=== PATIENT | male | born 1985 | race American Indian/Alaskan Native ===

== ENCOUNTER 2019-01-07 07:10 | Emergency (ER) | payer SELFPAY ==
[2019-01-07 07:16] VITALS: BP 139/85
--- NOTE | 2019-01-07 07:29 | Emergency Department Report ---
ED ENT HPI - General Chief complaint: Dental/Oral Stated complaint: TOOTH PAIN Time Seen by Provider: 01/07/19 07:19 Source: patient Mode of arrival: Ambulatory Limitations: No Limitations - History of Present Illness Initial comments: Patient is a 34-year-old male presents emergency room complaints of right upper dental pain that began 2 days ago. He states that he noticed right-sided facial swelling last night. He denies any fever, chills, nausea, vomiting, any other symptoms. He is able to tolerate by mouth intake without any difficulty. He s tates he has not seen a dentist in a few years. He denies any past medical history or allergies medications. - Related Data Previous Rx's Medication Instructions Recorded Last Taken Type Clindamycin [Clindamycin CAP] 450 mg PO TID 7 Days #63 capsule 01/07/19 Unknown Rx Ibuprofen [Motrin 600 MG tab] 600 mg PO Q8H PRN #14 tablet 01/07/19 Unknown Rx Allergies Allergy/AdvReac Type Severity Reaction Status Date / Time No Known Allergies Allergy Unverified 06/16/15 04:20 ED Dental HPI - General Chief complaint: Dental/Oral Stated complaint: TOOTH PAIN Time Seen by Provider: 01/07/19 07:19 Source: patient Mode of arrival: Ambulatory Limitations: No Limitations - Related Data Previous Rx's Medication Instructions Recorded Last Taken Type Clindamycin [Clindamycin CAP] 450 mg PO TID 7 Days #63 capsule 01/07/19 Unknown Rx Ibuprofen [Motrin 600 MG tab] 600 mg PO Q8H PRN #14 tablet 01/07/19 Unknown Rx Allergies Allergy/AdvReac Type Severity Reaction Status Date / Time No Known Allergies Allergy Unverified 06/16/15 04:20 ED Review of Systems ROS: Stated complaint: TOOTH PAIN Other details as noted in HPI Comment: All other systems reviewed and negative ED Past Medical Hx - Past Medical History Previous Medical History?: No - Surgical History Past Surgical History?: No - Social History Smoking Status: Never Smoker Substance Use Type: Alcohol, Marijuana - Medications Home Medications: Home Medications Medication Instructions Recorded Confirmed Last Taken Type Clindamycin [Clindamycin CAP] 450 mg PO TID 7 Days #63 capsule 01/07/19 Unknown Rx Ibuprofen [Motrin 600 MG tab] 600 mg PO Q8H PRN #14 tablet 01/07/19 Unknown Rx ED Physical Exam - General Limitations: No Limitations General appearance: alert, in no apparent distress - Head Head exam: Present: atraumatic, normocephalic - Eye Eye exam: Present: normal appearance - ENT ENT exam: Present: normal orophraynx, mucous membranes moist, other (poor dentition, several cracked/missing teeth present, on the right upper jaw one tooth is missing while the other appears impacted, there is a 1 cm area of edema and fluctuance to the right upper jaw, small amount of edema to the right upper cheek, uvula is midline, no uvular edema) - Respiratory Respiratory exam: Present: normal lung sounds bilaterally. Absent: respiratory distress, wheezes, rales, rhonchi, stridor, chest wall tenderness, accessory muscle use, decreased breath sounds, prolonged expiratory - Cardiovascular Cardiovascular Exam: Present: regular rate, normal rhythm, normal heart sounds. Absent: systolic murmur, diastolic murmur, rubs, gallop - Neurological Exam Neurological exam: Present: alert, oriented X3 - Psychiatric Psychiatric exam: Present: normal affect, normal mood - Skin Skin exam: Present: warm, dry, intact ED Course Vital Signs 01/07/19 07:12 Temperature 98.2 F Pulse Rate 85 Respiratory 18 Rate Blood Pressure 139/85 O2 Sat by Pulse 98 Oximetry ED Medical Decision Making - Medical Decision Making Patient is a 34-year-old male presents emergency room complaints of right upper dental pain that began 2 days ago. He states that he noticed right-sided facial swelling last night. He denies any fever, chills, nausea, vomiting, any other symptoms. He is able to tolerate by mouth intake without any difficulty. He states he has not seen a dentist in a few years. He denies any past medical history or allergies medications. VSS. on exam: poor dentition, several cracked/missing teeth present, on the right upper jaw one tooth is missing while the other appears impacted, there is a 1 cm area of edema and fluctuance to the right upper jaw, small amount of edema to the right upper cheek, uvula is midline, no uvular edema. examination consistent with dental abscess. given prescription for clindamycin and ibuprofen. please take medication as prescribed. Please follow-up with a dentist in the next 2-3 days. It is very important that you follow-up with a dentist for permanent solution. Return to the emergency room for any new or worsening symptoms. Critical care attestation.: If time is entered above; I have spent that time in minutes in the direct care of this critically ill patient, excluding procedure time. ED Disposition Clinical Impression: Dental abscess, Facial cellulitis, Cracked tooth Disposition: TO HOME OR SELFCARE Is pt being admited?: No Does the pt Need Aspirin: No Condition: Stable Instructions: Dental Abscess (ED) Additional Instructions: Please take medication as prescribed. Please follow-up with a dentist in the next 2-3 days. It is very important that you follow-up with a dentist for permanent solution. Return to the emergency room for any new or worsening symptoms. Prescriptions: Clindamycin [Clindamycin CAP] 450 mg PO TID 7 Days #63 capsule Ibuprofen [Motrin 600 MG tab] 600 mg PO Q8H PRN #14 tablet PRN Reason: Pain Referrals: [facility] [Outside] - 2-3 Days Time of Disposition: 07:27 Print Language: DANISH
== END 2019-01-07 07:40 | disposition home or self-care (01) ==
LOC: ED 07:10
DX: K04.7 Periapical abscess without sinus (principal); K03.81 Cracked tooth; L03.211 Cellulitis of face; F12.10 Cannabis abuse, uncomplicated
CPT/HCPCS: 99282